=== PATIENT | male | born 1970 | race Caucasian/White ===

== ENCOUNTER 2017-01-03 19:52 | Emergency (ER) | payer OTHER ==
[~2017-01-03] VITALS: Ht 170.2 cm; Wt 105.5 kg
[~2017-01-03 19:52] MED LIST: ALPR0.25 PO; BLOOD PRESSURE; FLUO40CA2 PO
[2017-01-03 19:57] VITALS: BP 124/81
== END 2017-01-03 21:15 | disposition home or self-care (01) ==
LOC: ED 21:05
DX: B37.42 Candidal balanitis (principal)
CPT/HCPCS: 81001; 99283